=== PATIENT | male | born 1985 | race Caucasian/White ===

== ENCOUNTER 2016-08-26 02:30 | Emergency (ER) | payer SELFPAY ==
[2016-08-26 03:10] LABS: Bilirubin Negative (Negative); Blood, Urine Negative (Negative); Clarity Clear (Clear); Glucose, Urine (Dipstick) Negative (Negative); Leukocyte Negative (Negative); Nitrite Negative (Negative); Protein, Urine (Dipstick) Negative (Neg-Trace); Specific Gravity, Urine 1.025 (1.005-1.030); Urobilinogen 0.2 mg/dL (0.2-1.0); pH, Urine 5.5 (5.0-9.0)
[2016-08-26 03:22] LABS: #Basophils 0.1 thou/uL (0.0-0.2); #Eosinphils 0.3 thou/uL (0.0-0.7); #Lymphocytes 2.7 thou/uL (1.20-3.40); #Monocytes 0.7 thou/uL (0.11-0.59); #Neutrophils 4.4 thou/uL (1.40-6.50); %Basophils 1.3 % (0.0-1.0); %Eosinophils 3.2 % (0.0-10.0); %Lymphocytes 33.2 % (21.0-51.0); %Monocytes 8.6 % (0.0-10.0); %Neutrophils 53.7 % (42.0-75.0); Hemoglobin 15.8 g/dL (14.0-18.0); Mean Corpuscular HGB CONC 35.6 g/dL (32.0-36.0); Mean Corpuscular Hemoglobin 32.2 pg (27.0-31.0); Mean Corpuscular Volume 90.5 fl (80.0-94.0); Mean Platelet Volume 6.5 fL (7.4-10.4); Platelet Count 291 thou/uL (130-400); RBC Distribution Width 11.2 % (11.5-14.5); White Blood Cell (WBC) Count 8.2 thou/uL (4.8-10.8)
[2016-08-26 03:37] LABS: ALT (SGPT) 26 U/L (0-55); AST (SGOT) 17 U/L (5-34); Albumin 4.4 g/dL (3.5-5.0); Alkaline Phosphatase 55 U/L (40-150); Anion Gap 15 mmol/L (10-20); BUN (Urea Nitrogen) 11 mg/dL (8.9-20.6); Bilirubin, Total 0.7 mg/dL (0.2-1.2); Calc. Creatinine Clearance 0 mL/min (70-130); Calcium 9.5 mg/dL (7.8-10.44); Carbon Dioxide 23 mmol/L (22-29); Chloride 102 mmol/L (98-107); Estimated GFR-MDRD Greater than 90; Globulin 2.7 g/dL (2.4-3.5); Glucose 107 mg/dL (70-105); Potassium 3.2 mmol/L (3.5-5.1); Protein, Total 7.1 g/dL (6.0-8.3); Sodium 137 mmol/L (136-145)
[2016-08-26] MEDS ORDERED: Potassium Chloride 20 MEQ TAB ONE (03:56)
== END 2016-08-26 04:06 | disposition home or self-care (01) ==
LOC: NAV ERS 02:30
DX: K52.9 Noninfective gastroenteritis and colitis, unspecified (principal); H66.91 Otitis media, unspecified, right ear; I10 Essential (primary) hypertension; F41.9 Anxiety disorder, unspecified; F17.210 Nicotine dependence, cigarettes, uncomplicated; Z79.899 Other long term (current) drug therapy
CPT/HCPCS: 80053; 81003; 85025

== ENCOUNTER 2016-10-14 22:16 | Emergency (ER) | payer SELFPAY ==
[2016-10-14] MEDS ORDERED: Aspirin 325 MG TAB ONE (23:40)
== END 2016-10-14 23:52 | disposition home or self-care (01) ==
LOC: NAV ERS 22:16
DX: M79.651 Pain in right thigh (principal); K21.9 Gastro-esophageal reflux disease without esophagitis; I10 Essential (primary) hypertension; F41.9 Anxiety disorder, unspecified; F17.210 Nicotine dependence, cigarettes, uncomplicated; Z79.899 Other long term (current) drug therapy
CPT/HCPCS: 99283

== ENCOUNTER 2017-09-10 00:35 | Emergency (ER) | payer SELFPAY | END 2017-09-10 01:03 | disposition home or self-care (01) | LOC: NAV ERS 00:35 | DX: H65.02 Acute serous otitis media, left ear (principal); K21.9 Gastro-esophageal reflux disease without esophagitis; I10 Essential (primary) hypertension; F41.9 Anxiety disorder, unspecified; F31.9 Bipolar disorder, unspecified; F17.210 Nicotine dependence, cigarettes, uncomplicated | CPT/HCPCS: 99282 ==

== ENCOUNTER 2017-11-04 13:29 | Emergency (ER) | payer SELFPAY ==
[2017-11-04] MEDS ORDERED: Ibuprofen 800 MG TAB ONE (13:55)
== END 2017-11-04 14:14 | disposition home or self-care (01) ==
LOC: NAV ERS 13:29
DX: B34.9 Viral infection, unspecified (principal); K21.9 Gastro-esophageal reflux disease without esophagitis; I10 Essential (primary) hypertension; F41.9 Anxiety disorder, unspecified; F31.9 Bipolar disorder, unspecified; F17.210 Nicotine dependence, cigarettes, uncomplicated
CPT/HCPCS: 99283

== ENCOUNTER 2017-11-17 15:32 | Emergency (ER) | payer SELFPAY | END 2017-11-17 16:41 | disposition home or self-care (01) | LOC: NAV ERS 15:32 | DX: B34.9 Viral infection, unspecified (principal); K21.9 Gastro-esophageal reflux disease without esophagitis; I10 Essential (primary) hypertension; F41.9 Anxiety disorder, unspecified; F31.9 Bipolar disorder, unspecified; F17.210 Nicotine dependence, cigarettes, uncomplicated; Z79.899 Other long term (current) drug therapy | CPT/HCPCS: 99283 ==

== ENCOUNTER 2017-11-21 15:47 | Emergency (ER) | payer SELFPAY ==
[2017-11-21] MEDS ORDERED: Acetaminophen 500 MG TAB ONE (16:46)
--- NOTE | 2017-11-21 17:23 | RAD ---
LEFT HAND INDEX FINGER THREE VIEWS: HISTORY: Smashed second digit between two drilling pipes four days ago. Pain. FINDINGS: Joint spaces are preserved. No fracture. Mild soft tissue swelling. IMPRESSION: No fracture. POS: [facility]
== END 2017-11-21 17:34 | disposition home or self-care (01) ==
LOC: NAV ERS 15:47
DX: S60.022A Contusion of left index finger without damage to nail, initial encounter (principal); I10 Essential (primary) hypertension; K21.9 Gastro-esophageal reflux disease without esophagitis; F41.9 Anxiety disorder, unspecified; F31.9 Bipolar disorder, unspecified; F17.210 Nicotine dependence, cigarettes, uncomplicated; F17.290 Nicotine dependence, other tobacco product, uncomplicated; W23.0XXA Caught, crushed, jammed, or pinched between moving objects, initial encounter

== ENCOUNTER 2017-12-15 02:11 | Emergency (ER) | payer SELFPAY ==
[2017-12-15 03:05] LABS: #Basophils 0.1 thou/uL (0.0-0.2); #Eosinphils 0.4 thou/uL (0.0-0.7); #Lymphocytes 3.5 thou/uL (1.20-3.40); #Monocytes 0.6 thou/uL (0.11-0.59); #Neutrophils 3.7 thou/uL (1.40-6.50); %Basophils 1.2 % (0.0-1.0); %Eosinophils 4.6 % (0.0-10.0); %Lymphocytes 41.9 % (21.0-51.0); %Monocytes 7.4 % (0.0-10.0); %Neutrophils 44.8 % (42.0-75.0); Bilirubin Negative (Negative); Blood, Urine Negative (Negative); Clarity Clear (Clear); Glucose, Urine (Dipstick) Negative (Negative); Hemoglobin 16.6 g/dL (14.0-18.0); Leukocyte Negative (Negative); Mean Corpuscular HGB CONC 32.6 g/dL (32.0-36.0); Mean Corpuscular Hemoglobin 29.4 pg (27.0-31.0); Mean Corpuscular Volume 90.1 fL (78.0-98.0); Mean Platelet Volume 6.7 fL (7.4-10.4); Nitrite Negative (Negative); Platelet Count 302 thou/uL (130-400); Protein, Urine (Dipstick) Negative (Neg-Trace); RBC Distribution Width 11.3 % (11.5-14.5); Red Blood Cell (RBC) Count 5.63 mill/uL (4.70-6.10); Specific Gravity, Urine 1.015 (1.005-1.030); Urobilinogen 0.2 mg/dL (0.2-1.0); White Blood Cell (WBC) Count 8.3 thou/uL (4.8-10.8)
[2017-12-15 03:25] LABS: ALT (SGPT) 19 U/L (8-55); AST (SGOT) 14 U/L (5-34); Albumin 4.6 g/dL (3.5-5.0); Alkaline Phosphatase 74 U/L (40-150); Anion Gap 16 mmol/L (10-20); BUN (Urea Nitrogen) 10 mg/dL (8.9-20.6); Bilirubin, Total 0.6 mg/dL (0.2-1.2); Calc. Creatinine Clearance 0 mL/min (70-130); Calcium 9.9 mg/dL (7.8-10.44); Carbon Dioxide 25 mmol/L (22-29); Chloride 102 mmol/L (98-107); Estimated GFR-MDRD Greater than 90; Globulin 2.7 g/dL (2.4-3.5); Glucose 100 mg/dL (70-105); Lipase 90 U/L (8-78); Potassium 3.7 mmol/L (3.5-5.1); Protein, Total 7.3 g/dL (6.0-8.3); Sodium 139 mmol/L (136-145)
[2017-12-15 03:33] LABS: CKMB 0.3 ng/mL (0-6.6); Troponin I Less than 0.010 ng/mL (< 0.028)
--- NOTE | 2017-12-15 08:16 | RAD ---
TWO VIEW CHES SERIES: INDICATION: Chest pain. FINDINGS: No free air beneath the hemidiaphragms. Lungs are clear. Cardiac silhouette is normal in size for p ortable technique. IMPRESSION: No focal consolidation. POS: [facility]
== END 2017-12-15 03:50 | disposition home or self-care (01) ==
LOC: NAV ERS 02:11
DX: R00.2 Palpitations (principal); K21.9 Gastro-esophageal reflux disease without esophagitis; I10 Essential (primary) hypertension; F41.9 Anxiety disorder, unspecified; F31.9 Bipolar disorder, unspecified; F17.210 Nicotine dependence, cigarettes, uncomplicated; Z79.899 Other long term (current) drug therapy
CPT/HCPCS: 36415; 71046; 80053; 81003; 82553; 83690; 84484; 85025; 93005

== ENCOUNTER 2019-05-25 10:18 | Emergency (ER) | payer SELFPAY | END 2019-05-25 11:07 | disposition home or self-care (01) | LOC: NAV ERS 10:18 | DX: J32.9 Chronic sinusitis, unspecified (principal); I10 Essential (primary) hypertension; F31.9 Bipolar disorder, unspecified; K21.9 Gastro-esophageal reflux disease without esophagitis; F41.9 Anxiety disorder, unspecified; F17.210 Nicotine dependence, cigarettes, uncomplicated; Z79.899 Other long term (current) drug therapy | CPT/HCPCS: 99283 ==

== ENCOUNTER 2019-09-05 06:59 | Emergency (ER) | payer OTHER, SELFPAY | END 2019-09-05 07:47 | disposition home or self-care (01) | LOC: NAV ERS 06:59 | DX: R05 Cough (principal); R09.89 Other specified symptoms and signs involving the circulatory and respiratory systems; R50.9 Fever, unspecified; K21.9 Gastro-esophageal reflux disease without esophagitis; I10 Essential (primary) hypertension; F41.9 Anxiety disorder, unspecified; F17.220 Nicotine dependence, chewing tobacco, uncomplicated; Z79.899 Other long term (current) drug therapy | CPT/HCPCS: 99283 ==

== ENCOUNTER 2019-09-17 20:47 | Emergency (ER) | payer SELFPAY ==
--- NOTE | 2019-09-17 23:12 | RAD ---
Exam: Chest one view HISTORY:Chest pain Comparison: 02/27/2016, 12/15/2017 FINDINGS: Cardiac silhouette: Normal Aorta: Unremarkable Pulmonary vessels: Normal Costophrenic angles: Clear LUNGS: No masses or consolidation. Pneumothorax: None Osseous abnormalities: None IMPRESSION: No acute cardiopulmonary process.
== END 2019-09-17 23:25 | disposition home or self-care (01) ==
LOC: NAV ERS 20:47
DX: R07.89 Other chest pain (principal); K21.9 Gastro-esophageal reflux disease without esophagitis; I10 Essential (primary) hypertension; F41.9 Anxiety disorder, unspecified; F17.220 Nicotine dependence, chewing tobacco, uncomplicated; Z79.899 Other long term (current) drug therapy
CPT/HCPCS: 71045; 93005; 94760

== ENCOUNTER → 2019-11-07 | Emergency (ER) | payer SELFPAY ==
[~2019-11-07] MED LIST: Metoclopramide HCl 10 MG/2 ML VIAL ONE; diphenhydrAMINE 50 MG/ML VIAL ONE
== END ==
LOC: NAV ERS 23:39
DX: G43.909 Migraine, unspecified, not intractable, without status migrainosus (principal); K21.9 Gastro-esophageal reflux disease without esophagitis; I10 Essential (primary) hypertension; F41.9 Anxiety disorder, unspecified; F17.290 Nicotine dependence, other tobacco product, uncomplicated; Z79.899 Other long term (current) drug therapy
CPT/HCPCS: 96372; 99283; J1200; J2765

== ENCOUNTER 2020-02-14 17:40 | Emergency (ER) | payer OTHER, SELFPAY ==
[2020-02-15 12:09] LABS: SARS-CoV-2 MS2 Positive; SARS-CoV-2 N Gene Negative; SARS-CoV-2 S Gene Negative; SARS-CoV-2 by NAA Not Detected (NotDetected); SARS-CoV-2 orf1ab Negative
== END 2020-02-14 18:42 | disposition home or self-care (01) ==
LOC: NAV ERS 17:40
DX: J06.9 Acute upper respiratory infection, unspecified (principal); Z20.828 Contact with and (suspected) exposure to other viral communicable diseases; K21.9 Gastro-esophageal reflux disease without esophagitis; I10 Essential (primary) hypertension; F41.9 Anxiety disorder, unspecified; F17.210 Nicotine dependence, cigarettes, uncomplicated; Z79.899 Other long term (current) drug therapy
CPT/HCPCS: 87635; 99284; U0003

== ENCOUNTER 2020-03-27 14:57 | Emergency (ER) | payer SELFPAY ==
[2020-03-27] MEDS ORDERED: HYDROcodone/Acetaminophen 5/325 mg Tablet ONE (15:26)
== END 2020-03-27 15:30 | disposition home or self-care (01) ==
LOC: NAV ERS 14:57
DX: K02.9 Dental caries, unspecified (principal); I10 Essential (primary) hypertension; K21.9 Gastro-esophageal reflux disease without esophagitis; F41.9 Anxiety disorder, unspecified; F17.210 Nicotine dependence, cigarettes, uncomplicated; Z79.899 Other long term (current) drug therapy
CPT/HCPCS: 99283

== ENCOUNTER 2020-05-08 17:45 | Emergency (ER) | payer SELFPAY | END 2020-05-08 18:36 | disposition home or self-care (01) | LOC: NAV ERS 17:45 | DX: S80.11XA Contusion of right lower leg, initial encounter (principal); R11.10 Vomiting, unspecified; I10 Essential (primary) hypertension; K21.9 Gastro-esophageal reflux disease without esophagitis; F17.210 Nicotine dependence, cigarettes, uncomplicated; Z79.899 Other long term (current) drug therapy; W22.8XXA Striking against or struck by other objects, initial encounter | CPT/HCPCS: 99283 ==

== ENCOUNTER 2020-05-14 23:03 | Emergency (ER) | payer SELFPAY ==
[2020-05-14] MEDS ORDERED: Clindamycin 150 MG CAP ONE (23:48)
[2020-05-14] MEDS ORDERED: HYDROcodone/Acetaminophen 5/325 mg Tablet ONE (23:48)
== END 2020-05-15 00:17 | disposition home or self-care (01) ==
LOC: NAV ERS 23:03
DX: K02.9 Dental caries, unspecified (principal); K08.89 Other specified disorders of teeth and supporting structures; K21.9 Gastro-esophageal reflux disease without esophagitis; I10 Essential (primary) hypertension; F17.290 Nicotine dependence, other tobacco product, uncomplicated; Z79.899 Other long term (current) drug therapy
CPT/HCPCS: 99282

== ENCOUNTER 2020-05-25 20:08 | Emergency (ER) | payer SELFPAY ==
[2020-05-25] MEDS ORDERED: traMADol HCl 50 MG TAB ONE (20:47)
[2020-05-25] MEDS ORDERED: Ondansetron ODT 4 MG TAB ONE (20:48)
[2020-05-25] MEDS ORDERED: Sulfameth/Trimethoprim DS 800-160mg TAB ONE (20:48)
== END 2020-05-25 21:00 | disposition home or self-care (01) ==
LOC: NAV ERS 20:08
DX: K04.7 Periapical abscess without sinus (principal); K21.9 Gastro-esophageal reflux disease without esophagitis; I10 Essential (primary) hypertension; F17.210 Nicotine dependence, cigarettes, uncomplicated; Z79.899 Other long term (current) drug therapy
CPT/HCPCS: 99282; Q0162

== ENCOUNTER 2020-06-15 21:53 | Emergency (ER) | payer SELFPAY ==
[2020-06-15] MEDS ORDERED: Sodium Chloride 0.9% 1,000 ML ONE (22:18)
[2020-06-15 22:19] LABS: #Basophils 0.1 thou/uL (0.0-0.2); #Eosinphils 0.2 thou/uL (0.0-0.7); #Lymphocytes 2.7 thou/uL (1.20-3.40); #Neutrophils 8.2 thou/uL (1.40-6.50); %Eosinophils 1.7 % (0.0-10.0); %Monocytes 8.4 % (0.0-10.0); %Neutrophils 66.8 % (42.0-75.0); Hemoglobin 13.8 g/dL (14.0-18.0); Mean Corpuscular HGB CONC 33.4 g/dL (32.0-36.0); Mean Corpuscular Hemoglobin 31.7 pg (27.0-31.0); Mean Corpuscular Volume 94.8 fL (78.0-98.0); Mean Platelet Volume 5.8 fL (7.4-10.4); Platelet Count 452 thou/uL (130-400); RBC Distribution Width 11.6 % (11.5-14.5); Red Blood Cell (RBC) Count 4.37 mill/uL (4.70-6.10); White Blood Cell (WBC) Count 12.3 thou/uL (4.8-10.8)
[2020-06-15 22:19] LABS: Bilirubin Negative (Negative); Blood, Urine Small (Negative); Clarity Clear (Clear); Glucose, Urine (Dipstick) Negative (Negative); Ketone, Urine Negative (Negative); Leukocyte Negative (Negative); Nitrite Negative (Negative); Protein, Urine (Dipstick) Negative (Neg-Trace); Specific Gravity, Urine 1.025 (1.005-1.030); Urobilinogen 0.2 mg/dL (Less than 2); pH, Urine 5.5 (5.0-9.0)
[2020-06-15 22:22] LABS: Bacteria/HPF None Seen HPF (None Seen); Squamous Epithelial None Seen HPF (0-3); WBC/HPF 0-3 HPF (0-3)
[2020-06-15 22:35] LABS: ALT (SGPT) 40 U/L (8-55); AST (SGOT) 21 U/L (5-34); Albumin 4.1 g/dL (3.5-5.0); Alkaline Phosphatase 76 U/L (40-110); Anion Gap 18 mmol/L (10-20); BUN (Urea Nitrogen) 15 mg/dL (8.9-20.6); Bilirubin, Total 0.6 mg/dL (0.2-1.2); Calc. Creatinine Clearance 0 mL/min (70-130); Carbon Dioxide 21 mmol/L (22-29); Chloride 103 mmol/L (98-107); Globulin 3.1 g/dL (2.4-3.5); Glucose 127 mg/dL (70-105); Potassium 3.5 mmol/L (3.5-5.1); Protein, Total 7.2 g/dL (6.0-8.3); Sodium 138 mmol/L (136-145)
[2020-06-15] MEDS ORDERED: Fentanyl 100 MCG/2 ML VIAL ONE (23:05)
[2020-06-15] MEDS ORDERED: Promethazine HCl 25 MG/ML VIAL ONE (23:06)
[2020-06-15] MEDS ORDERED: Sodium Chloride 0.9% 100 ML ONE (23:07)
--- NOTE | 2020-06-16 00:15 | CT ---
CT abdomen and pelvis noncontrast HISTORY: Left flank pain. FINDINGS: There is mild distention of the left renal collecting system and ureter. A 0.2 cm calcifica tion is present within the left dependent portion of the urinary bladder. Within nondilated calyces of the left kidney are 4 calcifications measuring up to 0.2 cm greatest diameter. A punctate calcific ation is also present within a nondilated calyx at the inferior pole of the right kidney. Lack of contrast limits evaluation for other abnormalities. No evidence of bowel obstruction or infla mmation. IMPRESSION : Tiny calcification within the urinary bladder has likely recently passed from the left ureter given t he mild residual distention. Additional tiny nonobstructing bilateral renal calculi. None greater than 0.2 cm.
== END 2020-06-16 00:30 | disposition home or self-care (01) ==
LOC: NAV ERS 21:53
DX: N20.0 Calculus of kidney (principal); F17.210 Nicotine dependence, cigarettes, uncomplicated; K21.9 Gastro-esophageal reflux disease without esophagitis; I10 Essential (primary) hypertension; Z79.899 Other long term (current) drug therapy
CPT/HCPCS: 74176; 80053; 81003; 81015; 85025; 96374; 96375; J2550; J3010; J7050

== ENCOUNTER 2020-07-06 06:58 | Emergency (ER) | payer OTHER, SELFPAY ==
--- NOTE | 2020-07-06 09:06 | CT ---
THORACIC SPINE CT SCAN WITHOUT IV CONTRAST: Date: 07/06/2020 HISTORY: Injury from trauma. FINDINGS: No evidence for acute fracture, dislocation, or significant malalignment. IMPRESSION: Unremarkable thoracic spine CT. POS: [facility]
== END 2020-07-06 08:18 | disposition home or self-care (01) ==
LOC: NAV ERS 06:58
DX: S00.01XA Abrasion of scalp, initial encounter (principal); M54.6 Pain in thoracic spine; K21.9 Gastro-esophageal reflux disease without esophagitis; I10 Essential (primary) hypertension; F17.290 Nicotine dependence, other tobacco product, uncomplicated; F17.210 Nicotine dependence, cigarettes, uncomplicated; Z79.899 Other long term (current) drug therapy; V57.5XXA Driver of pick-up truck or van injured in collision with fixed or stationary object in traffic accident, initial encounter; Y92.411 Interstate highway as the place of occurrence of the external cause
CPT/HCPCS: 72128